=== PATIENT | female | born 1965 | race Caucasian/White ===

== ENCOUNTER 2018-04-04 06:56 | Emergency (ER) | payer BC ==
[2018-04-04] MEDS ORDERED: Sodium Chloride 0.9% 1,000 ML IV STA (07:15)
[2018-04-04] MEDS ORDERED: Sodium Chloride 0.9% 10 ML Syringe FLUSH PRN ×2 (07:15→10:39)
[2018-04-04] MEDS ORDERED: Ondansetron 4 MG/2 ML SDV IVPUSH ONE ×2 (07:15→08:13)
[2018-04-04] MEDS ORDERED: HYDROmorphone 0.5 MG/0.5 ML SYRINGE IVPUSH ONE ×2 (07:17→11:58)
[2018-04-04] MEDS ORDERED: Sodium Chloride 0.9% 1,000 ML IV ONE (09:46)
[2018-04-04] MEDS ORDERED: Promethazine 25 MG/ML SDV IM ONE (09:56)
--- NOTE | 2018-04-04 10:27 | EDM.PDOC ---
ED HPI GENERAL MEDICAL PROBLEM - General Chief Complaint: Gastrointestinal Problem Stated Complaint: VOMITING Time Seen by Provider: 04/04/18 07:03 Source of Information: Reports: Patient History Limitations: Reports: No Limitations - History of Present Illness INITIAL COMMENTS - FREE TEXT/NARRATIVE: The patient presents with abdominal pain, nausea, vomiting and diarrhea. [place] ride and she drank about 6 beers Thursday night. She went to bed early Thursday and she was awakened by vomiting. She continues to have nausea and vomiting. She has epigastric pain. She also had some diarrhea yesterday. She has no fever but she does have chills. She had some chest pain and mild shortness of breath. The pain was described as a tightness. She has no dysuria. She still has her gallbladder and appendix. Onset: Gradual Duration: Day(s): Location: Reports: Abdomen (Epigastric) Quality: Reports: Sharp Severity: Moderate Improves with: Reports: None Worsens with: Reports: None Associated Symptoms: Reports: Fever/Chills, Nausea/Vomiting. Denies: Chest Pain , Cough, Headaches, Shortness of Breath Upper Abdomen Pain Score (Numeric/FACES): 5 - Related Data Allergies Allergy/AdvReac Type Severity Reaction Status Date / Time latex Allergy Hives Verified 04/04/18 07:08 sulfamethoxazole Allergy Hives Verified 04/04/18 07:08 [From Bactrim] trimethoprim [From Bactrim] Allergy Hives Verified 04/04/18 07:08 Home Meds: Home Meds Hydrocodone/Acetaminophen [Hydrocodon-Acetaminophen 5-325] 1 - 2 each PO Q6HR PRN #20 tablet 04/04/18 [Rx] Metoclopramide HCl [Reglan] 10 mg PO Q6HR PRN #20 tablet 04/04/18 [Rx] Nitrofurantoin Monohyd/M-Cryst [Macrobid 100 mg Capsule] 100 mg PO BID #10 capsule 04/04/18 [Rx] Past Medical History HEENT History: Reports: Impaired Vision - Past Surgical History HEENT Surgical History: Reports: Tonsillectomy Social & Family History - Tobacco Use Smoking Status *Q: Former Smoker Used Tobacco, but Quit: Yes Month/Year Tobacco Last Used: may 2017 Second Hand Smoke Exposure: No - Caffeine Use Caffeine Use: Reports: Coffee - Recreational Drug Use Recreational Drug Use: No ED ROS GENERAL - Review of Systems Review Of Systems: See Below Constitutional: Reports: Chills. Denies: Fever HEENT: Reports: No Symptoms Respiratory: Reports: No Symptoms Cardiovascular: Reports: Chest Pain (Tightness) Endocrine: Reports: No Symptoms GI/Abdominal: Reports: Abdominal Pain, Diarrhea, Nausea, Vomiting : Reports: No Symptoms Musculoskeletal: Reports: No Symptoms ED EXAM, GI/ABD - Physical Exam Exam: See Below Exam Limited By: No Limitations General Appearance: Alert, No Apparent Distress Ears: Normal External Exam Nose: Normal Inspection Head: Atraumatic, Normocephalic Neck: Normal Inspection Respiratory/Chest: No Respiratory Distress, Lungs Clear, Normal Breath Sounds Cardiovascular: Regular Rate, Rhythm, No Edema, No Murmur GI/Abdominal Exam: Soft, No Organomegaly, No Mass, Tender (Moderate tenderness to the epigastric area) Back Exam: Normal Inspection Extremities: Normal Inspection EKG INTERPRETATION EKG Date: 04/04/18 Time: 07:25 Rhythm: NSR Rate (Beats/Min): 92 [place]: Normal P-Wave: Present QRS: Normal ST-T: Normal QT: Normal EKG Interpretation Comments: PVCs Course - Vital Signs Last Recorded V/S: Last Vital Signs Temp 97.9 F 04/04/18 07:03 Pulse 110 H 04/04/18 07:03 Resp 20 04/04/18 07:03 BP 159/89 H 04/04/18 07:03 Pulse Ox 97 04/04/18 07:03 - Orders/Labs/Meds Orders: Active Orders 24 hr Category Date Time Status EKG Documentation Completion [RC] STAT Care 04/04/18 07:15 Active Peripheral IV Care [RC] . DIRECTED Care 04/04/18 07:15 Active Chest 1V Frontal [CR] Stat Exams 04/04/18 07:15 Taken UA W/MICROSCOPIC [URIN] Stat Lab 04/04/18 11:50 Ordered Sodium Chloride 0.9% [Saline Flush] Med 04/04/18 07:15 Active 10 ml FLUSH ASDIRECTED PRN Sodium Chloride 0.9% [Saline Flush] Med 04/04/18 10:39 Active 10 ml FLUSH ONETIME PRN ED Antiemetic Medication Reflex [OM.PC] Stat Oth 04/04/18 07:15 Ordered Peripheral IV Insertion Adult [OM.PC] Stat Oth 04/04/18 07:15 Ordered Medication Orders Sodium Chloride (Saline Flush) 10 ml FLUSH ASDIRECTED PRN PRN Reason: Keep Vein Open Last Admin: 04/04/18 07:40 Dose: 10 ml Sodium Chloride (Saline Flush) 10 ml FLUSH ONETIME PRN PRN Reason: IV FLUSH Last Admin: 04/04/18 10:51 Dose: 10 ml Labs: Laboratory Tests 04/04/18 04/04/18 04/04/18 Range/Units 07:52 07:52 11:50 WBC 15.65 H (3.98-10.04) K/mm3 RBC 5.22 (3.98-5.22) M/mm3 Hgb 17.0 H (11.2-15.7) gm/L Hct 49.7 H (34.1-44.9) % MCV 95.2 H (79.4-94.8) fl MCH 32.6 H (25.6-32.2) pg MCHC 34.2 (32.2-35.5) g/dl RDW Std Deviation 44.7 (36.4-46.3) fL Plt Count 319 (182-369) K/mm3 MPV 10.3 (9.4-12.3) fl Neut % (Auto) 82.1 H (34.0-71.1) % Lymph % (Auto) 10.5 L (19.3-51.7) % [place] % (Auto) 7.1 (4.7-12.5) % Eos % (Auto) 0 L (0.7-5.8) Baso % (Auto) 0.1 (0.1-1.2) % Neut # (Auto) 12.86 H (1.56-6.13) K/mm3 Lymph # (Auto) 1.64 (1.18-3.74) K/mm3 [place] # (Auto) 1.11 H (0.24-0.36) K/mm3 Eos # (Auto) 0.00 L (0.04-0.36) K/mm3 Baso # (Auto) 0.01 (0.01-0.08) K/mm3 Sodium 136 (136-145) mEq/L Potassium 3.0 L (3.5-5.1) mEq/L Chloride 97 L (98-107) mEq/L Carbon Dioxide 23 (21-32) mEq/L Anion Gap 19.0 H (5-15) BUN 10 (7-18) mg/dL Creatinine 1.3 H (0.55-1.02) mg/dL Est Cr Clr Drug Dosing 42.72 mL/min Estimated GFR (MDRD) 43 (>60) mL/min BUN/Creatinine Ratio 7.7 L (14-18) Glucose 132 H (74-106) mg/dL Calcium 10.1 (8.5-10.1) mg/dL Total Bilirubin 0.7 (0.2-1.0) mg/dL AST 20 (15-37) U/L ALT 37 (14-59) U/L Alkaline Phosphatase 88 (46-116) U/L Troponin I < 0.017 (0.00-0.056) ng/mL Total Protein 8.9 H (6.4-8.2) g/dl Albumin 4.2 (3.4-5.0) g/dl Globulin 4.7 gm/dL Albumin/Globulin Ratio 0.9 L (1-2) Lipase 183 (73-393) U/L Urine Color Yellow (Yellow) Urine Appearance Clear (Clear) Urine pH 7.0 (5.0-8.0) Ur Specific [place] 1.015 (1.005-1.030) Urine Protein 1+ H (Negative) Urine Glucose (UA) Negative (Negative) Urine Ketones Negative (Negative) Urine Occult Blood 1+ H (Negative) Urine Nitrite Positive H (Negative) Urine Bilirubin Negative (Negative) Urine Urobilinogen 0.2 (0.2-1.0) Ur Leukocyte Esterase 1+ H (Negative) Urine RBC 5-10 H (0-5) /hpf Urine WBC 20-30 H (0-5) /hpf Ur Epithelial Cells 5-10 H (0-5) /hpf Urine Bacteria Moderate H (FEW) /hpf Urine Mucus Few (FEW) /hpf Meds: Medications Generic Name Dose Route Start Last Admin Trade Name Freq PRN Reason Stop Dose Admin Sodium Chloride 10 ml 04/04/18 07:15 04/04/18 07:40 Saline Flush FLUSH 10 ml ASDIRECTED PRN Administration Keep Vein Open Sodium Chloride 10 ml 04/04/18 10:39 07/22/18 10:51 Saline Flush FLUSH 10 ml ONETIME PRN Administration IV FLUSH Discontinued Medications Generic Name Dose Route Start Last Admin Trade Name [place] PRN Reason Stop Dose Admin Hydromorphone HCl 0.5 mg 04/04/18 07:17 04/04/18 07:40 Dilaudid IVPUSH 04/04/18 07:18 0.5 mg ONETIME ONE Administration Hydromorphone HCl 0.5 mg 04/04/18 11:58 04/04/18 12:08 Dilaudid IVPUSH 04/04/18 11:59 0.5 mg ONETIME ONE Administration Sodium Chloride 1,000 mls @ 1,000 mls/hr 04/04/18 07:15 04/04/18 07:40 Normal Saline IV 04/04/18 08:14 1,000 mls/hr .BOLUS STA Administration Sodium Chloride 1,000 mls @ 1,000 mls/hr 04/04/18 09:46 04/04/18 11:01 Normal Saline IV 04/04/18 10:45 1,000 mls/hr ONETIME ONE Administration Iopamidol 100 ml 04/04/18 10:39 04/04/18 10:51 Isovue-300 (61%) IVPUSH 04/04/18 10:40 100 ml ONETIME ONE Administration Metoclopramide HCl 10 mg 04/04/18 11:58 04/04/18 12:08 Reglan IVPUSH 04/04/18 11:59 10 mg ONETIME ONE Administration Ondansetron HCl 4 mg 04/04/18 07:15 04/04/18 07:40 Zofran IVPUSH 04/04/18 07:16 4 mg ONETIME ONE Administration Ondansetron HCl 4 mg 04/04/18 08:13 04/04/18 08:23 Zofran IVPUSH 04/04/18 08:14 4 mg ONETIME ONE Administration Promethazine HCl 25 mg 04/04/18 09:56 04/04/18 10:08 Phenergan IM 04/04/18 09:57 25 mg ONETIME ONE Administration - Re-Assessments/Exams Free Text/Narrative Re-Assessment/Exam: 04/04/18 10:32 I ordered an IV NS 1L bolus, zofran 4mg IV, labs, UA, EKG, CXR, and dilaudid. 04/04/18 10:35 Her WBC was elevated at 15.65. Her Hgb was elevated at 17. Her K was low at 3. Her anion gap was elevated at 19. Her creatinine is elevated at 1.3. Her glucose is elevated at 132. Her troponin is negative. Her lipase is normal. Her EKG shows a NSR with no acute changes. She did have a PVC. 04/04/18 13:48 She still had more pain and nausea. I gave her more dilaudid and zofran and later reglan. I ordered a CT and it looked good. She had 2L of fluid. She feels better now. She has a UTI. I will get her on macrobid, reglan and some thing for pain. Departure - Departure Time of Disposition: 14:00 Disposition: Home, Self-Care 01 Condition: Good Clinical Impression: Viral gastroenteritis, Dehydration UTI (urinary tract infection) Qualifiers: Urinary tract infection type: site unspecified Hematuria presence: without hematuria Qualified Code(s): N39.0 - Urinary tract infection, site not specified - Discharge Information *PRESCRIPTION DRUG MONITORING PROGRAM REVIEWED*: No *COPY OF PRESCRIPTION DRUG MONITORING REPORT IN PATIENT KELI: No Prescriptions: Hydrocodone/Acetaminophen [Hydrocodon-Acetaminophen 5-325] 1 - 2 each PO Q6HR PRN #20 tablet PRN Reason: Pain Metoclopramide HCl [Reglan] 10 mg PO Q6HR PRN #20 tablet PRN Reason: Nausea/Vomiting Nitrofurantoin Monohyd/M-Cryst [Macrobid 100 mg Capsule] 100 mg PO BID #10 capsule Referrals: PCP,Not In Area [Primary Care Provider] - Forms: ED Department Discharge Additional Instructions: Drink plenty of fluids. Take the macrobid 2 times per day for 5 days. Take reglan 10mg every 6 hours as needed for nausea and vomiting. Take the hydrocodone for any pain. Please return if you are worse. - My Orders Last 24 Hours: My Active Orders 04/04/18 07:15 EKG Documentation Completion [RC] STAT Peripheral IV Care [RC] . DIRECTED Chest 1V Frontal [CR] Stat Sodium Chloride 0.9% [Saline Flush] 10 ml FLUSH ASDIRECTED PRN ED Antiemetic Medication Reflex [OM.PC] Stat Peripheral IV Insertion Adult [OM.PC] Stat 04/04/18 10:39 Sodium Chloride 0.9% [Saline Flush] 10 ml FLUSH ONETIME PRN 04/04/18 11:50 UA W/MICROSCOPIC [URIN] Stat - Assessment/Plan Last 24 Hours: My Active Orders 04/04/18 07:15 EKG Documentation Completion [RC] STAT Peripheral IV Care [RC] . DIRECTED Chest 1V Frontal [CR] Stat Sodium Chloride 0.9% [Saline Flush] 10 ml FLUSH ASDIRECTED PRN ED Antiemetic Medication Reflex [OM.PC] Stat Peripheral IV Insertion Adult [OM.PC] Stat 04/04/18 10:39 Sodium Chloride 0.9% [Saline Flush] 10 ml FLUSH ONETIME PRN 04/04/18 11:50 UA W/MICROSCOPIC [URIN] Stat
[2018-04-04] MEDS ORDERED: Iopamidol 612 MG/ML 100 ML Bottle IVPUSH ONE (10:39)
--- NOTE | 2018-04-04 11:36 | CT ---
CT abdomen and pelvis Technique: Multiple axial sections were obtained from above the dome of the diaphragm inferiorly through the pubic symphysis. Intravenous contrast was utilized. No oral contrast was utilized. Delayed images were obtained through the abdomen and pelvis. Comparison: No prior abdominal imaging. Findings: Visualized lung bases are clear. Liver shows diminished density compatible with fatty infiltration. No focal abnormality is seen within the liver. Spleen appears within normal limits. Adrenal glands show no nodule. Left kidney shows some scarring. Right kidney appears within normal limits. Delayed images shows no filling defects within the collecting systems. Contrast is noted throughout the ureters into the bladder. Pancreas is within normal limits. Aorta shows atherosclerotic calcification without aneurysm. No retroperitoneal adenopathy is seen. Gallbladder contains no calcified gallstones. No mesenteric abnormalities are seen. No pelvic mass or adenopathy is seen. Appendix is seen and is normal in size with no surrounding inflammatory change. Bone window settings were reviewed which appear within normal limits for the patient's age. Impression: 1. Areas of scarring within the left kidney. Fatty infiltration is noted within the liver. 2. Other incidental findings as noted above. Nothing acute is seen. Diagnostic code #2
[2018-04-04] MEDS ORDERED: Metoclopramide 10 MG/2 ML SDV IVPUSH ONE (11:58)
--- NOTE | 2018-04-05 07:15 | CR ---
Chest: Portable view of the chest was obtained. Comparison: No prior chest x-ray. Heart size and mediastinum are normal. Lungs are clear. Bony structures are grossly intact. Impression: 1. Nothing acute is appreciated on portable chest x-ray. Diagnostic code #1
== END 2018-04-04 15:13 | disposition home or self-care (01) ==
LOC: JD.ED 06:56
DX: A08.4 Viral intestinal infection, unspecified (principal); E86.0 Dehydration; N39.0 Urinary tract infection, site not specified; Z91.040 Latex allergy status; Z79.899 Other long term (current) drug therapy; Z87.891 Personal history of nicotine dependence
CPT/HCPCS: 36415; 71045; 74177; 80053; 81001; 83690; 84484; 85025; 93005; 96361; 96372; 96374; 96375; 96376; 99285; J1170; J2405; J2550; J2765; J7040; J7050; Q9967; 99284